=== PATIENT | female | born 1980 | race Caucasian/White ===

== ENCOUNTER 2016-09-30 17:30 | Inpatient (IN) ==
--- NOTE | 2016-09-30 18:55 | Emergency Department Note ---
Disposition Clinical Impression: Sepsis, Pyelonephritis, Free fluid in pelvis Disposition: Admitted As Inpatient Referrals: NO,PCP [Primary Care Provider] - Forms: ED Satisfaction Letter General Adult HPI - General Chief complaint: ED Urogenital-Female Stated complaint: UTI,LRQ pain Time Seen by Provider: 09/30/16 18:54 Source: patient Limitations: no limitations - History of Present Illness HPI Narrative: 36-year-old female reports to the emergency department complaining of right flank pain and right abdominal pain with associated urinary frequency. She reports she has had UTI symptoms for about 4 weeks but things became progressively worse over the last 24 hours she denies or vaginal discharge or bleeding no trauma or rash. No vomiting or diarrhea. There is no history of kidney stones previously. There is no history of previous abdominal surgery. No chest pain or shortness of breath. There is no history of weakness or numbness legs or bowel or bladder dysfunction. Dysuria is noted. She denies diabetes, she is currently not anticoagulated. Pain Scale: 8 - Related Data Home Medications Medication Instructions Recorded Confirmed No Known Home Drugs 09/30/16 09/30/16 Allergies Allergy/AdvReac Type Severity Reaction Status Date / Time No Known Allergies Allergy Verified 09/30/16 17:34 All systems ED: reviewed and negative except as stated. Past Medical History - Past Medical History Medical history: Reports: migraine Surgical history: Reports: other (back surgery - shaved disc L4-5, S1) Psychiatric history: Reports: anxiety - Social History Smoking Status: Never smoker Smokeless Tobacco Status: No Alcohol use: Reports: none Drug use: Reports: none Physical Exam - General Limitations: no limitations General appearance: alert, in no apparent distress - Head Head exam: atraumatic, normocephalic, normal inspection - Eye Eye exam: Present: normal appearance, PERRL, EOMI - ENT ENT exam: normal exam, normal oropharynx, mucous membranes moist - Neck Neck exam: Present: normal inspection, full ROM, trachea midline. Absent: tenderness - Chest Chest inspection: Present: symmetric chest wall rise. Absent: tenderness - Respiratory Respiratory exam: Present: normal lung sounds bilaterally. Absent: respiratory distress, wheezes, accessory muscle use, prolonged expiratory phase - Cardiovascular Cardiovascular exam: Present: regular rate, normal rhythm, normal heart sounds - Abdominal Exam Abdominal exam: Present: soft, tenderness. Absent: distention, guarding, rebound, rigidity, normal bowel sounds, diminished bowel sounds Abdominal tenderness: Present: RUQ, RLQ, moderate - Rectal Exam Integration Director present during exam: Yes - Female External Exam: Present: normal external exam Speculum Exam: Present: cervical OS closed, vaginal discharge, cervical discharge. Absent: cervical OS open, erythema, vaginal bleeding, foreign body, tissue, laceration Bimanual Exam: Present: cervical motion tenderness, uterine tenderness - Extremities Exam Extremities exam: Present: normal inspection, full ROM, normal capillary refill. Absent: tenderness, pedal edema, joint swelling, calf tenderness - Expanded Lower Extremity Exam Lower leg exam: Absent: Homans' sign Neurovascular/Tendon exam: Present: normal capillary refill. Absent: motor deficit, sensory deficit, tendon deficit, extremity cold to touch, pallor - Back Exam Back exam: Present: normal inspection, full ROM, CVA tenderness (R). Absent: tenderness, CVA tenderness (L), vertebral tenderness - Neurological Exam Neurological exam: Present: alert, oriented X3, CN II-XII intact. Absent: motor sensory deficit - Psychiatric Psychiatric exam: Present: normal affect, normal mood - Skin Skin exam: Present: warm, dry, intact, normal color. Absent: rash, cyanosis, diaphoresis, erythema, pallor, mottled Course Vital Signs Temperature 98.6 F 09/30/16 17:35 Pulse Rate 105 09/30/16 17:35 Respiratory Rate 18 09/30/16 17:35 Blood Pressure 113/77 09/30/16 17:35 O2 Sat by Pulse Oximetry 95 09/30/16 17:35 Temperature 98.6 F 09/30/16 17:35 Pulse Rate 83 09/30/16 21:00 Respiratory Rate 16 09/30/16 21:00 Blood Pressure 120/83 09/30/16 21:00 O2 Sat by Pulse Oximetry 96 09/30/16 21:00 Oxygen Delivery Oxygen Delivery Room Air Medical Decision Making - [facility] Narrative Medical decision making narrative: The patient has an elevated white count, a source for infection, and is tachycardic. She meets sepsis criteria. Her CT scan reveals what appears to be pyelonephritis and cystitis. She also has some free fluid in the abdomen which is attributed to a ruptured cyst. Her pelvic examination did reveal some cervical discharge, vaginosis panel and gonorrhea and chlamydia tests were ordered. The patient was initially given morphine and Zofran. Additional Dilantin was ordered. IV fluids were ordered. Rocephin was given initially IV and status post CT results ampicillin sulbactam was ordered. The patient is currently stable. Based on her evidence of infection pyelonephritis/cystitis and apparent sepsis with potential other intra-abdominal or gynecologic pathologies, I felt it would be appropriate to admit the patient to the hospital. I reviewed the case with the hospitalist Dr. Santoyo who has accepted the patient to his care. I offered to consult PROGRAM PLANNER, but he prefers to evaluate the patient initially prior to consultations. I think it would be appropriate to consider PROGRAM PLANNER and surgical consultations while the patient is in the hospital to fully define pathology. - Lab Data Lab results reviewed: Yes I reviewed the patient's lab results. Result diagrams: 09/30/16 19:43 09/30/16 19:43 Lab Results 09/30/16 09/30/16 09/30/16 Range/Units 19:05 19:07 19:43 WBC 13.5 H (4.3-11.1) K/mcL RBC 4.72 (3.82-4.97) M/mcL Hgb 14.0 (11.5-15.4) g/dL Hct 41.1 (35.3-44.9) % MCV 87.1 (83.0-100.0) fL MCH 29.7 (28.0-33.3) pg MCHC 34.1 (31.6-35.5) g/dL RDW 12.4 (11.5-14.5) % Plt Count 245 (140-400) K/mcL MPV 9.3 L (9.4-12.4) fL Immature Gran % 0.5 (0-4) % Seg Neutrophils % 79.5 % Lymphocytes % 14.0 % Monocytes % 5.3 % Eosinophils % 0.5 % Basophils % 0.2 % Neutrophils # 10.7 H (1.6-8.9) K/mcL Lymphocytes # 1.9 (0.6-4.6) K/mcL Monocytes # 0.7 (0.0-1.3) K/mcL Eosinophils # 0.1 (0.0-0.6) K/mcL Basophils # 0.0 (0.0-0.2) K/mcL Sodium (136-145) mEq/L Potassium (3.5-4.5) mEq/L Chloride (98-109) mEq/L Carbon Dioxide (19-29) mEq/L BUN (7-20) mg/dL Creatinine (0.57-1.11) mg/dL Est GFR ( Amer) (> 60) Est GFR (Non-Af Amer) (> 60) BUN/Creatinine Ratio (6-26) Glucose (70-99) mg/dL Calculated Osmolality (280-300) Lactic Acid (0.5-2.2) mmol/L Calcium (8.6-10.8) mg/dL Total Bilirubin (0.2-1.2) mg/dL Direct Bilirubin (0.0-0.5) mg/dL Indirect Bilirubin (0.0-1.2) mg/dL AST (5-34) Units/L ALT (0-55) Units/L Alkaline Phosphatase (38-126) Units/L C-Reactive Protein (Less than 5) mg/L Serum Total Protein (6.0-8.3) g/dL Albumin (3.5-5.0) g/dL Globulin (2.4-3.5) g/dL Albumin/Globulin Ratio (1.1-2.2) Lipase (8-78) Units/L Urine Color Yellow (Yellow) Urine Clarity Turbid A (Clear) Urine pH 7.0 (5.0-8.0) pH Units Ur Specific [place] 1.013 (1.010-1.025) Urine Protein 30 H (Neg-Trace) mg/dL Urine Glucose (UA) Normal (Normal) mg/dL Urine Ketones Negative (Negative) mg/dL Urine Blood Moderate H (Negative) Urine Nitrite Positive A (Negative) Urine Bilirubin Negative (Negative) Urine Urobilinogen Normal (Normal) mg/dL Ur Leukocyte Esterase Large H (Negative) Urine Microscopic RBC 0-3 (0-3) per hpf Urine Microscopic WBC TNTC H (0-3) per hpf Ur Squamous Epith Cells Many H (None-Few) per lpf Urine Bacteria Many H (None-Few) per hpf Hyaline Casts None Seen (None-Few) per lpf Urine Yeast Many H (None Seen) per hpf Ur Culture Indicated? YES A (NO) Urine Test Negative (Negative) 09/30/16 09/30/16 Range/Units 19:43 19:43 WBC (4.3-11.1) K/mcL RBC (3.82-4.97) M/mcL Hgb (11.5-15.4) g/dL Hct (35.3-44.9) % MCV (83.0-100.0) fL MCH (28.0-33.3) pg MCHC (31.6-35.5) g/dL RDW (11.5-14.5) % Plt Count (140-400) K/mcL MPV (9.4-12.4) fL Immature Gran % (0-4) % Seg Neutrophils % % Lymphocytes % % Monocytes % % Eosinophils % % Basophils % % Neutrophils # (1.6-8.9) K/mcL Lymphocytes # (0.6-4.6) K/mcL Monocytes # (0.0-1.3) K/mcL Eosinophils # (0.0-0.6) K/mcL Basophils # (0.0-0.2) K/mcL Sodium 138 (136-145) mEq/L Potassium 4.0 (3.5-4.5) mEq/L Chloride 109 (98-109) mEq/L Carbon Dioxide 18 L (19-29) mEq/L BUN 8 (7-20) mg/dL Creatinine 0.83 (0.57-1.11) mg/dL Est GFR ( Amer) > 60 (> 60) Est GFR (Non-Af Amer) > 60 (> 60) BUN/Creatinine Ratio 10 (6-26) Glucose 78 (70-99) mg/dL Calculated Osmolality 283 (280-300) Lactic Acid 2.2 (0.5-2.2) mmol/L Calcium 9.5 (8.6-10.8) mg/dL Total Bilirubin 0.9 (0.2-1.2) mg/dL Direct Bilirubin 0.4 (0.0-0.5) mg/dL Indirect Bilirubin 0.5 (0.0-1.2) mg/dL AST 13 (5-34) Units/L ALT 6 (0-55) Units/L Alkaline Phosphatase 77 (38-126) Units/L C-Reactive Protein 17 H (Less than 5) mg/L Serum Total Protein 7.3 (6.0-8.3) g/dL Albumin 4.0 (3.5-5.0) g/dL Globulin 3.3 (2.4-3.5) g/dL Albumin/Globulin Ratio 1.2 (1.1-2.2) Lipase 6 L (8-78) Units/L Urine Color (Yellow) Urine Clarity (Clear) Urine pH (5.0-8.0) pH Units Ur Specific [place] (1.010-1.025) Urine Protein (Neg-Trace) mg/dL Urine Glucose (UA) (Normal) mg/dL Urine Ketones (Negative) mg/dL Urine Blood (Negative) Urine Nitrite (Negative) Urine Bilirubin (Negative) Urine Urobilinogen (Normal) mg/dL Ur Leukocyte Esterase (Negative) Urine Microscopic RBC (0-3) per hpf Urine Microscopic WBC (0-3) per hpf Ur Squamous Epith Cells (None-Few) per lpf Urine Bacteria (None-Few) per hpf Hyaline Casts (None-Few) per lpf Urine Yeast (None Seen) per hpf Ur Culture Indicated? (NO) Urine Test (Negative) - Radiology Data Radiology results reviewed: Yes I reviewed the patient's radiology results.
[2016-09-30] MEDS ORDERED: *HR* Morphine 2 MG/ML SYRINGE IVP ONE (19:09)
[2016-09-30] MEDS ORDERED: Ondansetron 4 MG/2 ML VIAL IVP ONE ×2 (19:09→22:07)
[2016-09-30] MEDS ORDERED: 0.9 % Sodium Chloride 1,000 ML IVC ONE ×2 (19:09→22:06)
[2016-09-30 19:13] LABS: Bilirubin,Urine Negative (Negative); Blood,Urine Moderate (Negative); Clarity,Urine Turbid (Clear); Color,Urine Yellow (Yellow); Glucose,Urine (UA) Normal (Normal); Ketones,Urine Negative (Negative); Leukocyte Esterase,Urine Large (Negative); Nitrite,Urine Positive (Negative); Protein,Urine 30 mg/dL (Neg-Trace); Specific Gravity,Urine 1.013 (1.010-1.025); Urobilinogen,Urine Normal (Normal)
[2016-09-30 19:16] LABS: Bacteria,Urine Many per hpf (None-Few); Hyaline Casts,Urine None Seen per lpf (None-Few); RBC,Urine 0-3 per hpf (0-3); Squamous Epithelial Cell,Urine Many per lpf (None-Few); WBC,Urine TNTC per hpf (0-3)
[2016-09-30 19:30] LABS: Yeast,Urine Many per hpf (None Seen)
[2016-09-30 19:51] LABS: Basophils % 0.2 %; Eosinophils # 0.1 K/mcL (0.0-0.6); Eosinophils % 0.5 %; Hematocrit 41.1 % (35.3-44.9); Immature Granulocytes % 0.5 % (0-4); Lymphocytes # 1.9 K/mcL (0.6-4.6); Mean Corpuscular HGB Conc 34.1 g/dL (31.6-35.5); Mean Corpuscular Hemoglobin 29.7 pg (28.0-33.3); Mean Corpuscular Volume 87.1 fL (83.0-100.0); Mean Platelet Volume 9.3 fL (9.4-12.4); Monocytes # 0.7 K/mcL (0.0-1.3); Monocytes % 5.3 %; Neutrophils # 10.7 K/mcL (1.6-8.9); Platelet Count 245 K/mcL (140-400); Red Blood Count 4.72 M/mcL (3.82-4.97); Red Cell Distribution Width 12.4 % (11.5-14.5); Segmented Neutrophils % 79.5 %
[2016-09-30 20:07] LABS: Alanine Aminotransferase 6 Units/L (0-55); Albumin/Globulin Ratio 1.2 (1.1-2.2); Alkaline Phosphatase 77 Units/L (38-126); Aspartate Amino Transferase 13 Units/L (5-34); BUN/Creatinine Ratio 10 (6-26); Bilirubin,Direct 0.4 mg/dL (0.0-0.5); Bilirubin,Indirect 0.5 mg/dL (0.0-1.2); Bilirubin,Total 0.9 mg/dL (0.2-1.2); Blood Urea Nitrogen 8 mg/dL (7-20); C-Reactive Protein 17 mg/L (Less than 5); Calcium 9.5 mg/dL (8.6-10.8); Carbon Dioxide 18 mEq/L (19-29); Chloride 109 mEq/L (98-109); Globulin 3.3 g/dL (2.4-3.5); Glucose 78 mg/dL (70-99); Lipase 6 Units/L (8-78); Osmolality,Calculated 283 (280-300); Sodium 138 mEq/L (136-145); Total Protein 7.3 g/dL (6.0-8.3); eGFR For African Americans > 60 (> 60); eGFR For Non-African Americans > 60 (> 60)
[2016-09-30] MEDS ORDERED: *HR* HYDROmorphone (PF) 1 MG/ML SYRINGE IVP ONE (22:07)
[2016-09-30] MEDS ORDERED: Ampicillin/Sulbactam 3,000 MG in 0.9 % Sodium Chloride Mini Bag 100 ML IVPB ONE (22:09)
[2016-09-30] MEDS ORDERED: Acetaminophen 325 MG TABLET PO PRN (23:20)
[2016-09-30] MEDS ORDERED: Naloxone 0.4 MG/ML INJ IVP PRN (23:20)
[2016-09-30] MEDS ORDERED: Ondansetron ODT 4 MG TAB.RAPDIS SL PRN (23:20)
[2016-09-30] MEDS ORDERED: *HR* Promethazine 25 MG/ML VIAL IVP PRN (23:31)
[2016-09-30] MEDS ORDERED: Promethazine 12.5 MG in 0.9 % Sodium Chloride 50 ML IVPB PRN (23:38)
--- NOTE | 2016-09-30 23:41 | Internal Med History&Physical ---
Date of Encounter: 09/30/16 Time of Encounter: 23:05 Assessment and Plan (1) Sepsis Current visit: Yes Status: Acute 1. Pt fluid resuscitated in ER. 2. Will continue IVF and monitor hemodynamics. 3. Blood cultures have not yet been done -- I ordered them STAT. 4. Urine and cervical specimens obtained. 5. Urine/kidney most likely source for sepsis. I doubt PID and/or cervicitis. Nonetheless, I did consult [employer] and asked them to see her and asked for PID treatment recommendations until lab results available. In addition to Rocephin , they recommend Zithromax and Doxycycline. Qualifiers: Sepsis type: Escherichia coli Qualified Code(s): A41.51 - Sepsis due to Escherichia coli [E. coli] (2) Pyelonephritis Current visit: Yes Status: Acute 1. IVF and antibiotics as above. 2. If fails to improve or worsens, consider re-imaging to rule out perinephric abscess. No abscess on today's CT. (3) DVT prophylaxis Current visit: Yes Status: Acute 1. Heparin SQ. Internal Medicine - H&P: HPI Chief complaint: flank pain, dysuria Admitted From: Emergency Dept Plans for Post Hospital Care: Home History of present illness: Ms. Sorensen is a 36 year old female who presents with a 4-5 week history of dysuria, urgency, frequency, and recent onset of flank pain. She has had fevers and chills along with some nausea. She has no vomiting or diarrhea. Appetite and fluid intake have diminished. She went to urgent care a few weeks ago, but she has never been on antibiotics. I reviewed her recent urine culture from urgent care -- E. Coli. WOrk-up in ER revealed findings compatible with pyelonephritis and sepsis. CT abdomen and pelvis confirm pyelonephritis but also note some cervicitis. Pelvic exam performed in ER per Dr. Aguilar. Upon my assessment of patient, she appears ill but non-toxic. She confirms above history. She has never had any STI/STD. She is in a monogamous relationship. She has not had a P[facility]/[employer] exam in several years. She has never had UTI before. Past Med Surg Social Fam HX - Past Medical History Attestation: Yes The following information was validated with the patient. Source: patient, old records reviewed Medical history: migraine Psychiatric history: anxiety, depression - Past Surgical History Surgical History: other (low back surgery) - Social History Smoking Status: Never smoker Smokeless Tobacco Status: No Alcohol use: none Drug use: none Current living situation: Home, With Family Activity Level: Independent ambulation, Very active Recent Out of Country Travel Within the Last 8 Weeks: No - Family History Mother Hx Family Medical Disorders: No (no renal issues) Father Hx Family Medical Disorders: No (no renal issues) Internal Medicine - H&P: Meds No Known Home Drugs 09/30/16 [History] Allergies No Known Allergies Allergy (Verified 09/30/16 17:34) - Constitutional Constitutional: chills, fever(s) - EENT Eyes: no blurry vision, no change in vision Ears: no ear pain, no tinnitus Nose, mouth and throat: no nasal congestion, no sinus pressure, no sore throat - Cardiovascular Cardiovascular ROS IM: no chest pain, no dyspnea, no dyspnea on exertion - Respiratory Respiratory: no cough, no dyspnea, no hemoptysis - Gastrointestinal Gastrointestinal: abdominal pain (right flank and middle quadrant pain), nausea , no diarrhea, no hematemesis, no hematochezia, no melena, no vomiting - Genitourinary Genitourinary: dysuria, flank pain, hematuria, pelvic pain, urinary frequency, urinary urgency, no dyspareunia - Musculoskeletal Musculoskeletal ROS IM: back pain, no arthralgias, no muscle cramps - Integumentary Integumentary IM: no rash, no jaundice - Neurological Neurological ROS: no dizziness, no focal weakness, no headache(s) - Psychiatric Psychiatric: no anxiety, no depression - Endocrine Endocrine IM: no cold intolerance, no heat intolerance, no polydipsia, no polyuria - Hematologic/Lymphatic Hematologic/Lymphatic: no easy bruising, no lymphadenopathy - Allergic/Immunologic Allergic/Immunologic: no wheezing, no GI upset with certain foods - Constitutional Vitals: Temp Pulse Resp BP Pulse Ox 100.6 F H 89 18 108/63 100 09/30/16 23:19 09/30/16 23:19 09/30/16 23:19 09/30/16 23:19 09/30/16 23:19 General appearance: Present: cooperative, mild distress, A&O X 3, pleasant, answers questions appropriately - Head Head exam: Present: atraumatic, normal inspection - Eye Eye exam: Present: EOMI, normal appearance, PERRL. Absent: scleral icterus Pupils: Present: normal accommodation - ENT ENT exam: Present: mucous membranes dry, normal exam, normal oropharynx - Neck Neck exam general surgery: Present: full ROM, supple. Absent: lymphadenopathy, nuchal rigidity, thyromegaly - Respiratory Respiratory exam: Present: CTAB. Absent: chest wall tenderness, rales, respiratory distress, rhonchi, wheezes - Cardiovascular Cardiovascular exam: Present: RRR, +S1, +S2. Absent: diastolic murmur, systolic murmur - GI/Abdominal GI/Abdominal exam: Present: normal bowel sounds, soft, tenderness (right flank to RUQ/RMQ), no peritoneal signs. Absent: guarding, hepatomegaly, mass, rebound , splenomegaly - Extremities Exam Extremities exam: Present: full ROM, normal capillary refill, warm, radial pulses palpable and symetrical. Absent: calf tenderness, joint swelling, tenderness - Back Exam Back exam: Present: CVA tenderness (R), normal inspection. Absent: CVA tenderness (L) - Neurological Exam Neurological exam: Present: alert, CN II-XII intact, oriented X3, no focal deficits - Psychiatric Psychiatric exam: Present: normal affect, normal mood - Skin Skin exam: Present: dry, warm. Absent: rash Internal Med - H&P Results - Labs CBC & Chem 7: 09/30/16 19:43 09/30/16 19:43 - Diagnostic Studies CT scan - abdomen Additional comments: Report reviewed
[2016-09-30] MEDS: 0.9 % Sodium Chloride 1,000 ML IVC SCH (23:44)
[2016-09-30] MEDS: Azithromycin 250 MG TABLET PO SCH (23:53)
[2016-09-30] MEDS: *HR* Morphine 2 MG/ML SYRINGE IVP PRN (23:54)
[2016-10-01 00:46] LABS: Basophils % 0.2 %; Eosinophils # 0.1 K/mcL (0.0-0.6); Eosinophils % 0.4 %; Hematocrit 34.4 % (35.3-44.9); Immature Granulocytes % 0.4 % (0-4); Lymphocytes # 1.2 K/mcL (0.6-4.6); Lymphocytes % 10.4 %; Mean Corpuscular HGB Conc 34.9 g/dL (31.6-35.5); Mean Platelet Volume 9.3 fL (9.4-12.4); Monocytes # 1.1 K/mcL (0.0-1.3); Monocytes % 9.5 %; Neutrophils # 8.9 K/mcL (1.6-8.9); Platelet Count 231 K/mcL (140-400); Red Cell Distribution Width 12.4 % (11.5-14.5); Segmented Neutrophils % 79.1 %
[2016-10-01 00:54] LABS: INR 1.2; Prothrombin Time 13.1 Seconds (9.4-12.1)
[2016-10-01 00:57] LABS: Activated Partial Thrombo Time 31.2 Seconds (26.0-36.0)
[2016-10-01] MEDS: *HR* OxyCODONE Immed Rel 5 MG TABLET PO PRN ×3 (02:55→18:57)
[2016-10-01] MEDS: 0.9 % Sodium Chloride 1,000 ML IVC SCH ×3 (04:21→13:53)
[2016-10-01 05:12] LABS: Alanine Aminotransferase 7 Units/L (0-55); Alkaline Phosphatase 66 Units/L (38-126); Aspartate Amino Transferase 13 Units/L (5-34); BUN/Creatinine Ratio 8 (6-26); Bilirubin,Total 0.7 mg/dL (0.2-1.2); Blood Urea Nitrogen 7 mg/dL (7-20); Calcium 8.6 mg/dL (8.6-10.8); Carbon Dioxide 23 mEq/L (19-29); Chloride 107 mEq/L (98-109); Glucose 105 mg/dL (70-99); Magnesium 1.7 mg/dL (1.6-2.6); Osmolality,Calculated 286 (280-300); Potassium 3.6 mEq/L (3.5-4.5); Sodium 139 mEq/L (136-145); Total Protein 6.1 g/dL (6.0-8.3); eGFR For African Americans > 60 (> 60); eGFR For Non-African Americans > 60 (> 60)
[2016-10-01 05:13] LABS: Albumin 3.1 g/dL (3.5-5.0)
[2016-10-01] MEDS: Doxycycline 100 MG in 0.9 % Sodium Chloride Mini Bag 100 ML IVPB SCH ×2 (05:26→17:43)
[2016-10-01] MEDS: *HR* Morphine 2 MG/ML SYRINGE IVP PRN ×5 (05:32→22:30)
[2016-10-01] MEDS: *HR* Heparin 5,000 UNIT/ML VIAL SQ SCH ×2 (05:33→17:43)
[2016-10-01] MEDS: Azithromycin 250 MG TABLET PO SCH (07:32)
--- NOTE | 2016-10-01 11:16 | OB/GYN Consult Note ---
Date of Encounter: 10/01/16 Time of Encounter: 11:07 Assessment and Plan (1) Pyelonephritis Current Visit: Yes Status: Acute Clinical suspicion for PID low at this time given negative vaginal cultures and known untreated UTI for 5 weeks. Continue management per primary team. Will consider pelvic US if pain persists after resolution of UTI. Pt to call office once discharged to arrange follow-up and annual exam according to her schedule. POC discussed with Dr. Castillo. (2) Healthcare maintenance Current Visit: Yes Status: Acute last pap >1 yr patient to call [facility] on discharge to schedule annual exam Thank-you for consulting [facility] and allowing us to help with the care of this patient. We will sign off at this time. Please feel free to contact us if you have any further questions. History of Present Illness Consult date: 10/01/16 Requesting physician: Emory Webb Reason for consult: pelvic pain Chief complaint: abdominal pain History of present illness: Justina Sorensen is a 36 yo female admitted for pyelonephritis. She reports a 5 week history of UTI and coming to the ER for increasing pain. [facility] was consulted due to cervical motion tenderness noted in the ER and possible cervicitis seen on CT. Her current pain starts at the right back at the base of the ribs, then curves anterior and inferior to represent flank pain, also with bilateral pelvic pain. She is a previous patient of [facility]; however, her last PAP was >1 year prior and completed by her PCP. Past Med Surg Social Fam HX - Past Medical History Medical history: migraine Psychiatric history: anxiety, depression - Past Surgical History Surgical History: other (low back surgery) - Social History Smoking Status: Never smoker Smokeless Tobacco Status: No Alcohol use: none Drug use: none - Family History Mother Hx Family Medical Disorders: No (no renal issues) Father Hx Family Medical Disorders: No (no renal issues) Medications and Allergies No Known Home Drugs 09/30/16 [History] Allergies No Known Allergies Allergy (Verified 09/30/16 17:34) Review of Systems Constitutional: fever(s), no headache(s) Cardiovascular: no chest pain Respiratory: no dyspnea Gastrointestinal: abdominal pain, no nausea Genitourinary Female: abnormal menses (she does admit to skipping a period in August but reports this is normal for her. She is not taking any hormonal contraception s/p BPS), flank pain, pelvic pain, urinary hesitancy, no genital lesions, no vaginal discharge, no vaginal odor Menstruation: menses variable Musculoskeletal: back pain Exam - Vital Signs Vital signs: Initial Vital Signs Temp Pulse Resp BP Pulse Ox 98.6 F 105 18 113/77 95 09/30/16 17:35 09/30/16 17:35 09/30/16 17:35 09/30/16 17:35 09/30/16 17:35 - Constitutional Constitutional: well developed, well nourished, no acute distress - HEENT HEENT: Mucus Membranes Moist - Neck Neck exam: supple - Lungs Respiratory exam: CTAB - Cardiovascular Cardiovascular exam: RRR, +S1, +S2 - Abdomen Abdomen: Present: bowel sounds normal. Absent: non tender Abdomen detail: right upper quadrant: tenderness (moderate), right lower quadrant: tenderness, left upper quadrant: tenderness - Extremities Extremities exam: normal inspection, warm - Comments Comments: back: right CVA tenderness, mildly TTP in lower abdomen, no masses palpated Results Result Diagrams: 10/01/16 00:37 10/01/16 00:37 Abnormal lab results WBC 11.2 K/mcL (4.3-11.1) H 10/01/16 00:37 Hct 34.4 % (35.3-44.9) L 10/01/16 00:37 MPV 9.3 fL (9.4-12.4) L 10/01/16 00:37 PT 13.1 Seconds (9.4-12.1) H 10/01/16 00:37 Glucose 105 mg/dL (70-99) H 10/01/16 00:37 C-Reactive Protein 17 mg/L (Less than 5) H 09/30/16 19:43 Albumin 3.1 g/dL (3.5-5.0) L D 10/01/16 00:37 Albumin/Globulin Ratio 1.0 (1.1-2.2) L 10/01/16 00:37 Lipase 6 Units/L (8-78) L 09/30/16 19:43 Urine Clarity Turbid (Clear) A 09/30/16 19:07 Urine Protein 30 mg/dL (Neg-Trace) H 09/30/16 19:07 Urine Blood Moderate (Negative) H 09/30/16 19:07 Urine Nitrite Positive (Negative) A 09/30/16 19:07 Ur Leukocyte Esterase Large (Negative) H 09/30/16 19:07 Urine Microscopic WBC TNTC per hpf (0-3) H 09/30/16 19:07 Ur Squamous Epith Cells Many per lpf (None-Few) H 09/30/16 19:07 Urine Bacteria Many per hpf (None-Few) H 09/30/16 19:07 Urine Yeast Many per hpf (None Seen) H 09/30/16 19:07 Ur Culture Indicated? YES (NO) A 09/30/16 19:07 All other labs normal. Consult Discharge Plan - Plan Referrals: Karen Gross, HIV NURSE [Advanced Practice Nurse] -
--- NOTE | 2016-10-01 12:40 | Event Note ---
Date of Encounter: 10/01/16 Time of Encounter: 12:36 patinet admitted for UTI/pyelonephritis. seen at the bedside, clinically better, no fever or leucocytosis. abd CT shows evidence of pyelo and possible cervicitis. seen by ACCOUNTS PAYABLE SUPERVISOR, clinically less likely PID. pap smear to be scheduled as OP. will follow cx results.
[2016-10-02] MEDS: 0.9 % Sodium Chloride 1,000 ML IVC SCH ×2 (00:24→02:22)
[2016-10-02] MEDS: *HR* Morphine 2 MG/ML SYRINGE IVP PRN (02:25)
[2016-10-02] MEDS: *HR* OxyCODONE Immed Rel 5 MG TABLET PO PRN (05:20)
[2016-10-02] MEDS: Doxycycline 100 MG in 0.9 % Sodium Chloride Mini Bag 100 ML IVPB SCH (05:21)
[2016-10-02] MEDS: *HR* Heparin 5,000 UNIT/ML VIAL SQ SCH (05:22)
[2016-10-02 10:17] LABS: Basophils % 0.3 %; Eosinophils # 0.1 K/mcL (0.0-0.6); Eosinophils % 1.6 %; Hematocrit 33.7 % (35.3-44.9); Hemoglobin 11.7 g/dL (11.5-15.4); Immature Granulocytes % 0.3 % (0-4); Lymphocytes # 1.6 K/mcL (0.6-4.6); Lymphocytes % 25.2 %; Mean Corpuscular HGB Conc 34.7 g/dL (31.6-35.5); Mean Corpuscular Hemoglobin 30.5 pg (28.0-33.3); Mean Corpuscular Volume 87.8 fL (83.0-100.0); Mean Platelet Volume 10.3 fL (9.4-12.4); Monocytes # 0.5 K/mcL (0.0-1.3); Monocytes % 7.8 %; Neutrophils # 4.2 K/mcL (1.6-8.9); Platelet Count 188 K/mcL (140-400); Red Blood Count 3.84 M/mcL (3.82-4.97); Red Cell Distribution Width 12.7 % (11.5-14.5); Segmented Neutrophils % 64.8 %
[2016-10-02 10:26] LABS: BUN/Creatinine Ratio 18 (6-26); Blood Urea Nitrogen 13 mg/dL (7-20); Carbon Dioxide 16 mEq/L (19-29); Chloride 113 mEq/L (98-109); Glucose 99 mg/dL (70-99); Osmolality,Calculated 292 (280-300); Potassium 3.8 mEq/L (3.5-4.5); Sodium 141 mEq/L (136-145); eGFR For African Americans > 60 (> 60); eGFR For Non-African Americans > 60 (> 60)
[2016-10-02 10:50] VITALS: BP 100/59
--- NOTE | 2016-10-02 13:50 | Discharge Summary ---
Date of Encounter: 10/02/16 Time of Encounter: 13:48 - Discharge Diagnosis (1) Sepsis Priority: Primary Status: Acute Qualifiers: Sepsis type: Escherichia coli Qualified Code(s): A41.51 - Sepsis due to Escherichia coli [E. coli] (2) Pyelonephritis Priority: Primary Status: Acute - Discharge Medications Prescriptions: Levofloxacin [Levaquin] 500 mg PO DAILY #14 tablet Home Medications: Levofloxacin [Levaquin] 500 mg PO DAILY #14 tablet 10/02/16 [Rx] Allergies/Adverse Reactions: Allergies No Known Allergies Allergy (Verified 09/30/16 17:34) Date of admission: 10/01/16 00:35 Primary care physician: PCP NO Discharging clinician: Eda Moreno Anticipated date of discharge: 10/02/16 - Patient Status Disposition: Home, Self-Care Condition: Fair Functional capacity at discharge: independent ambulation Overall status at discharge: patient is back to baseline - Discharge Instructions Follow Up With: Bushra Velasquez SALES AND MARKETING COORDINATOR [Advanced Practice Nurse] - 10/07/16 10:00 am - Diet and Activity Activity: resume usual activities as tolerated Diet: advance to your usual diet Interval History: Ms. Sorensen is a 36 year old female who presents with a 4-5 week history of dysuria, urgency, frequency, and recent onset of flank pain. She has had fevers and chills along with some nausea. She has no vomiting or diarrhea. Appetite and fluid intake have diminished. She went to urgent care a few weeks ago, but she has never been on antibiotics. WOrk-up in ER revealed findings compatible with pyelonephritis and sepsis. CT abdomen and pelvis confirm pyelonephritis but also note some questionable cervicitis. OB was consulted and they thiink PID less likely. seen at the bedside, clinically better, no fever or leucocytosis. uirne cx growing E. coli, will change to oral Levofloxacin to continue for 14 days. pap smear to be scheduled as OP. Patient discharged in stable condition. Hospital course: Ms. Sorensen is a 36 year old female Time spent discussing smoking cessation with patient: more than 10 minutes - Time Spent with Patient Total time spent providing and/or coordinating discharge services: Greater than 30 minutes - Constitutional Vitals: Temp Pulse Resp BP Pulse Ox 98.3 F 76 16 100/59 98 10/02/16 10:48 10/02/16 10:48 10/02/16 10:48 10/02/16 10:48 10/02/16 10:48 General appearance: Present: cooperative, mild distress, A&O X 3, pleasant, answers questions appropriately
== END 2016-10-02 14:39 | disposition home or self-care (01) | DRG 720 ==
LOC: EMEROO 17:30 → 3ANU 17:30 → SUATTDRO 10-01 00:35
PROVIDERS: ADMIT Internal Medicine; ATTEND Pediatrics